=== PATIENT | female | born 1970 | race Two or more races ===

== ENCOUNTER 2024-04-16 15:56 | Emergency (ER) | payer MEDICAID, SELFPAY ==
[2024-04-16 15:58] VITALS: BP 138/75; PULSE 70; RESP 20; TEMP 36.7; O2SAT 99; BMI 29.0
--- NOTE | 2024-04-16 16:22 | HMH.EDGENADL ---
Discharge Plan Disposition Patient Disposition: Home, Self-Care Condition: Good Prescriptions Prescriptions: New prednisone 50 mg tablet 50 mg PO DAILY 5 Days Qty: 5 0RF meclizine 25 mg tablet 25 mg PO QID PRN (Reason: dizziness) Qty: 30 0RF fimhjkfsezwnuil-vnyfbhffq-BX [Bromfed DM] 2-30-10 mg/5 mL syrup 5 ml PO Q4H PRN (Reason: sinus symptoms) Qty: 118 0RF Referrals Follow up/Referrals: Belinda Brown PA [Primary Care Provider] - See instructions Ángela Nguyen APRN [Nurse Practitioner] - See instructions Activity Restrictions/Add. Instructions Additional Instructions/Restrictions: Please call in the morning to make your appointment with ear nose and throat. Follow-up with your PCP within 48 hours for recheck. If you have any worsening signs or symptoms return to the ER as needed. Clinical Impressions Clinical Impression: Dizziness, Acute dysfunction of right eustachian tube Instructions Patient Instructions: DI for Dizziness-Nonvertigo Print Language Print Language: Belarusian Discharge ED Provider: Otf Rockwell General Adult HPI <HETAL Flynn - Last Filed: 04/16/24 23:17> General Chief complaint: Dizziness Stated complaint: itchy ears, dizziness Time Seen by Provider: 04/16/24 16:22 Mode of Arrival: Ambulatory Source of Information: Patient Limitations: No Limitations Description of Symptoms (Recalled from ER Triage Doc. by RN): pt states she noticed dizziness that changes with movement that bgan on tuesday and then her inner ears began to bother her on tuesday and patient is here today. vitals wnl upon triage History of Present Illness HPI narrative: Patient presents for 3 days of dizziness. Patient states that when she sits still she does not have dizziness however with any movement especially with bending over she noticed that the dizziness is increases. It is not focal to one side. She has never had a diagnosis of vertigo. She does report that she is having right ear pain but denies fever chills chest pain shortness of breath hemoptysis hematochezia melena nausea vomiting diarrhea or cough. She denies any focal neurologic deficits. Related Data Previous Rx's ?Medication ?Instructions ?Recorded yfnnfdtolhwweja-igaribmewqlsxfk-UF 5 ml PO Q4H PRN sinus symptoms 04/16/24 2 mg-30 mg-10 mg/5 mL oral syrup #118 mL (Bromfed DM) meclizine 25 mg tablet 25 mg PO QID PRN dizziness #30 tabs 04/16/24 prednisone 50 mg tablet 50 mg PO DAILY 5 days #5 tabs 04/16/24 Allergies Allergy/AdvReac Type Severity Reaction Status Date / Time No Known Allergies Allergy Verified 04/16/24 16:33 PFSH <HETAL Flynn - Last Filed: 04/16/24 23:17> [facility] Disclaimer: The information contained in this section may have been updated after the patient was seen, as this information can be updated by other users. Social History (Updated 04/16/24 @ 23:17 by HETAL Flynn) Smoking Status: Current every day smoker alcohol intake: never current occupational status: employed Travel in the last 8 weeks: None Have you lived/traveled outside [place] in past 30 days?: No Contact w/someone who lives/traveled outside [place] past 30 days?: No Exposure to someone with infectious disease in past 14 days?: No Do you have a fever (greater than 100.4 F or 38 C)?: No Have you tested positive for COVID-19: No Exposed to someone with COVID-19 in past 14 days?: No Do you have a sore throat?: No Do you have a cough?: No Do you have any weakness?: No Do you have any diarrhea?: No Are you experiencing any unusual bleeding?: No Do you have any muscle aches/pain?: No Do you have any abdominal pain?: No Are you experiencing loss of taste or smell?: No <HETAL Flynn - Last Filed: 04/16/24 23:17> ROS Obtained: Yes Systems reviewed as appropriate & no additional complaints except as documented Physical Exam <HETAL Flynn - Last Filed: 04/16/24 23:17> General General appearance: alert and in no apparent distress ENT ENT exam: Present TM's normal bilaterally Respiratory Respiratory exam: Present normal lung sounds bilaterally Cardiovascular Cardiovascular exam: Present regular rate Neurological Exam Neurological exam: Present alert and oriented X3 Medical Decision Making <HETAL Flynn - Last Filed: 04/16/24 23:17> Medical Records Medical records reviewed: Yes I reviewed the patient's medical records. Screening: Per USPSTF and CDC recommendations, given the prevalence of disease in our region, it is our hospital?s policy to screen for HIV and viral Hepatitis for all patients aged 18 and over and those with ongoing risk factors. Juan Inquiry Pt receiving controlled substance: No Vital Signs: 04/16/24 15:58 04/16/24 18:52 Temperature 98.1 F 98.2 F Temperature Source Oral Pulse Rate 80 Pulse Rate [Left Radial] 70 Respiratory Rate 20 20 Blood Pressure 128/79 Blood Pressure [Right Arm] 138/75 Blood Pressure Mean [Right Arm] 96 02 Sat by Pulse Oximetry 99 Oxygen Delivery Method Room Air Room Air Lab Data Lab results reviewed: Yes I reviewed the patient's lab results. Lab Results 04/16/24 17:45: WBC 8.2, RBC 5.01, Hgb 14.9, Hct 43.3, MCV 86.4, MCH 29.7, MCHC 34.4, RDW 13.2, Plt Count 296, MPV 9.3, Neut % (Auto) 73.4, Lymph % (Auto) 18.5, Stone % (Auto) 4.8, Eos % (Auto) 2.4, Baso % (Auto) 0.5, Neut # (Auto) 6.0, Lymph # (Auto) 1.5, Stone # (Auto) 0.4, Eos # (Auto) 0.2, Baso # (Auto) 0.0, Sodium 139, Potassium 4.0, Chloride 104, Carbon Dioxide 27, Anion Gap 12.0, BUN 13, Creatinine 0.80, Estimated Creat Clear 106, Estimated GFR 75, Est GFR ( Amer) 91, Glucose 124 H, Calcium 9.3, Magnesium 1.9 04/16/24 17:45 04/16/24 17:45 Orders (Tests/Meds): ED MEDICATIONS Discontinued Medications Generic Name Dose Route Start Last Admin Trade Name Freq PRN Reason Stop Dose Admin Meclizine HCl 50 mg 04/16/24 17:31 04/16/24 17:55 Meclizine 25mg Tablet PO 04/16/24 17:32 50 mg ONCE ONE Administration Prednisone 60 mg 04/16/24 17:31 04/16/24 17:55 Prednisone 20mg Tab PO 04/16/24 17:32 60 mg ONCE ONE Administration ORDERS Category Date Time Status BMP [Basic Metabolic Panel] Stat Lab 04/16/24 17:45 Completed CBC w/Auto Diff [Complete Blood Count Auto Diff] Stat Lab 04/16/24 17:45 Completed Magnesium Stat Lab 04/16/24 17:45 Completed Medical Decision Narrative: In summary patient is a 54-year-old female who presents to the emergency department for evaluation of dizziness and right ear pain. Patient is hemodynamically stable upon arrival, afebrile. Physical exam is remarkable for bilateral normal tympanic membranes, normal posterior pharynx, no carotid bruits, no cervical lymphadenopathy. No nuchal rigidity or meningeal signs. Pupils are equal round reactive to light. I am unable to provoke nystagmus and patient has no increasing dizziness with head rotation, patient has no focal neurologic deficits and cranial nerves II through XII are intact grossly to exam breath sounds are clinical bilaterally to the bases without adventitious sounds.. Differential diagnosis includes BPPV versus hydrops versus eustachian tube dysfunction. Initial workup will be conducted with hematologic labs. Initial interventions include Tylenol meclizine prednisone. Initial workup reviewed by me that her hematologic labs are nonactionable. Upon repeat evaluation patient reported improvement in her dizziness but not complete resolution.. Given this there remains diagnostic uncertainty regards to her dizziness but did not believe that this is a central cause as she has no focal neurologic deficits or findings and has no physical exam findings to support infectious etiology. Given this patient is appropriate for discharge with referral to ENT for further workup as well as prescription for meclizine and prednisone. Patient given strict return precautions and close follow-up with her PCP. <Otf Rockwell MD - Last Filed: 04/16/24 23:31> Vital Signs: 04/16/24 15:58 04/16/24 18:52 Temperature 98.1 F 98.2 F Temperature Source Oral Pulse Rate 80 Pulse Rate [Left Radial] 70 Respiratory Rate 20 20 Blood Pressure 128/79 Blood Pressure [Right Arm] 138/75 Blood Pressure Mean [Right Arm] 96 02 Sat by Pulse Oximetry 99 Oxygen Delivery Method Room Air Room Air Lab Data Lab Results 04/16/24 17:45: WBC 8.2, RBC 5.01, Hgb 14.9, Hct 43.3, MCV 86.4, MCH 29.7, MCHC 34.4, RDW 13.2, Plt Count 296, MPV 9.3, Neut % (Auto) 73.4, Lymph % (Auto) 18.5, Stone % (Auto) 4.8, Eos % (Auto) 2.4, Baso % (Auto) 0.5, Neut # (Auto) 6.0, Lymph # (Auto) 1.5, Stone # (Auto) 0.4, Eos # (Auto) 0.2, Baso # (Auto) 0.0, Sodium 139, Potassium 4.0, Chloride 104, Carbon Dioxide 27, Anion Gap 12.0, BUN 13, Creatinine 0.80, Estimated Creat Clear 106, Estimated GFR 75, Est GFR ( Amer) 91, Glucose 124 H, Calcium 9.3, Magnesium 1.9 Orders (Tests/Meds): ED MEDICATIONS Discontinued Medications Generic Name Dose Route Start Last Admin Trade Name Freq PRN Reason Stop Dose Admin Meclizine HCl 50 mg 04/16/24 17:31 04/16/24 17:55 Meclizine 25mg Tablet PO 04/16/24 17:32 50 mg ONCE ONE Administration Prednisone 60 mg 04/16/24 17:31 04/16/24 17:55 Prednisone 20mg Tab PO 04/16/24 17:32 60 mg ONCE ONE Administration ORDERS Category Date Time Status BMP [Basic Metabolic Panel] Stat Lab 04/16/24 17:45 Completed CBC w/Auto Diff [Complete Blood Count Auto Diff] Stat Lab 04/16/24 17:45 Completed Magnesium Stat Lab 04/16/24 17:45 Completed Medical Decision Narrative: In summary patient is a 54-year-old female who presents to the emergency department for evaluation of dizziness and right ear pain. Patient is hemodynamically stable upon arrival, afebrile. Physical exam is remarkable for bilateral normal tympanic membranes, normal posterior pharynx, no carotid bruits, no cervical lymphadenopathy. No nuchal rigidity or meningeal signs. Pupils are equal round reactive to light. I am unable to provoke nystagmus and patient has no increasing dizziness with head rotation, patient has no focal neurologic deficits and cranial nerves II through XII are intact grossly to exam breath sounds are clinical bilaterally to the bases without adventitious sounds.. Differential diagnosis includes BPPV versus hydrops versus eustachian tube dysfunction. Initial workup will be conducted with hematologic labs. Initial interventions include Tylenol meclizine prednisone. Initial workup reviewed by me that her hematologic labs are nonactionable. Upon repeat evaluation patient reported improvement in her dizziness but not complete resolution.. Given this there remains diagnostic uncertainty regards to her dizziness but did not believe that this is a central cause as she has no focal neurologic deficits or findings and has no physical exam findings to support infectious etiology. Given this patient is appropriate for discharge with referral to ENT for further workup as well as prescription for meclizine and prednisone. Patient given strict return precautions and close follow-up with her PCP. I was consulted by the JAMIE, and we discussed the complexity of the problems being addressed. I approved the treatment and management plan for this patient's care in the Emergency Department, thus performing a substantive portion of the medical decision making. Otf Rockwell MD Critical Care <HETAL Flynn - Last Filed: 04/16/24 23:17> Critical Care Time Critical Care Time: No
--- NOTE | 2024-04-16 17:47 | PC.NURSE ---
Pt straight stick for purple, green, and red
[2024-04-16 17:53] LABS: Basophils % 0.5 % (0.1-2.0); Eosinophils # 0.2 K/mm3 (0.0-0.4); Eosinophils % 2.4 % (0.1-12.0); Hematocrit 43.3 % (37.0-47.0); Hemoglobin 14.9 g/dL (12.2-16.2); Lymphocytes # 1.5 K/mm3 (0.7-4.5); Lymphocytes % 18.5 % (10-50); Mean Corpuscular HGB Conc 34.4 g/dL (31.8-35.4); Mean Corpuscular Hemoglobin 29.7 pg (27.0-31.2); Mean Corpuscular Volume 86.4 fl (81-99); Mean Platelet Volume 9.3 fl (7.4-10.4); Monocytes # 0.4 K/mm3 (0.1-1.0); Monocytes % 4.8 % (1.7-9.3); Neutrophils % 73.4 % (37.0-80.0); Platelet Count 296 K/mm3 (142-424); Red Blood Count 5.01 M/mm3 (4.20-5.40); Red Cell Distribution Width 13.2 % (11.5-17.5); White Blood Count 8.2 K/mm3 (4.8-10.8)
[2024-04-16] MEDS: MECLIZINE 25MG TABLET 50 MG PO (17:55)
[2024-04-16] MEDS: predniSONE 20MG TAB 60 MG PO (17:55)
[2024-04-16 18:05] LABS: Chloride 104 mmol/L (98-107); Sodium 139 mmol/L (136-145)
[2024-04-16 18:08] LABS: Blood Urea Nitrogen 13 mg/dl (7-17); Creatinine Clearance Estimated 106 mL/min (50-200); Estimated Glomerular Filt Rate 75 ml/min (>60); GFR (African American) 91 ML/MIN (>60)
[2024-04-16 18:09] LABS: Calcium 9.3 mg/dl (8.4-10.2); Carbon Dioxide 27 mmol/L (22.0-30.0); Glucose 124 mg/dl (74-100)
[2024-04-16 18:29] LABS: Magnesium 1.9 mg/dl (1.6-2.3)
[2024-04-16 18:52] VITALS: BP 128/79; PULSE 80; RESP 20; TEMP 36.8; O2SAT 98
== END 2024-04-16 18:54 | disposition home or self-care (01) ==
PROVIDERS: Physician Assistant; Emergency Provider Emergency Medicine; PCP Physician Assistant
DX: H69.91 Unspecified Eustachian tube disorder, right ear (principal); R42 Dizziness and giddiness; H92.03 Otalgia, bilateral; Z72.0 Tobacco use
CPT/HCPCS: 80048; 83735; 85025; 99283